=== PATIENT | female | born 1960 | race American Indian/Alaskan Native ===

== ENCOUNTER 2016-07-25 20:38 | Emergency (ER) | payer MEDICARE ==
[2016-07-25] MEDS ORDERED: CATAPRES ONE (20:57)
[2016-07-25] MEDS ORDERED: CATAPRES PO ONE (21:03)
[2016-07-25 21:37] VITALS: BP 149/86
[2016-07-25] MEDS ORDERED: FLEXERIL PO ONE (22:38)
[2016-07-25] MEDS ORDERED: TORADOL IM ONE (22:38)
--- NOTE | 2016-07-25 22:38 | Emergency Department Report ---
HPI - General Chief Complaint: Extremity Injury, Lower Time Seen by Provider: 07/25/16 22:11 - HPI HPI: Is a 55-year-old female presents complaining of left lower but pain radiating down her upper thigh intermittently for about a month. Patient states she has an orthopedic appointment with Dr. Agustin on August 06 as read out of her pain medication and can see her primary care physician on 2 out to the orthopedic appointment. She denies any other problems. She denies any recent falls or trauma. She denies fevers/chills/nausea/vomiting/abdominal pain/chest pains or shortness of breath/dizziness or any other problems. ED Past Medical Hx - Past Medical History Previous Medical History?: Yes Hx Hypertension: Yes Hx Diabetes: Yes - Surgical History Past Surgical History?: Yes Additional Surgical History: C-Sec x 2,. Laser - Eye bilateral - Social History Smoking Status: Never Smoker Substance Use Type: None - Medications Home Medications: Home Medications Medication Instructions Recorded Confirmed Last Taken Type Cyclobenzaprine [Flexeril 10 MG 10 mg PO QHS #24 tablet 07/25/16 Unknown Rx TAB] Diclofenac Potassium 50 mg PO BID #40 tablet 07/25/16 Unknown Rx ED Review of Systems ROS: Stated complaint: LF LEG PAIN Other details as noted in HPI Constitutional: denies: chills, fever Eyes: denies: eye pain, eye discharge, vision change ENT: denies: ear pain, throat pain Respiratory: denies: cough, shortness of breath, wheezing Cardiovascular: denies: chest pain, palpitations Endocrine: no symptoms reported Gastrointestinal: denies: abdominal pain, nausea, diarrhea Genitourinary: denies: urgency, dysuria, discharge Musculoskeletal: denies: back pain, joint swelling, arthralgia Skin: denies: rash, lesions Neurological: denies: headache, weakness, paresthesias Psychiatric: denies: anxiety, depression Hematological/Lymphatic: denies: easy bleeding, easy bruising Physical Exam - Physical Exam Vital Signs: Vital Signs 07/25/16 07/25/16 07/25/16 20:40 21:00 21:36 Temperature 98.0 F 98.1 F Pulse Rate 83 83 81 Respiratory 20 18 Rate Blood Pressure 192/110 Blood Pressure 192/110 149/86 [Right] O2 Sat by Pulse 100 100 Oximetry Physical Exam: GENERAL: Alert and oriented x3, no apparent distress, Normal Gait, atraumatic. HEAD: Head is normocephalic and a-traumatic. NECK: Supple. Non edematous, No carotid bruits. No lymphadenopathy or thyromegaly. No C-spine tenderness LUNGS: Symetrical with respiration, No wheezing, no rales or crackles, CTAB. HEART: S1, S2 present, regular rate and rhythm without murmur, no rubs, no gallops. EXTREMITIES/MUSCULOSKELETAL: No cyanosis, clubbing, rash, lesions or edema. Full ROM bilaterally. UE/LE Pulses 2+ bilaterally. LE and UE 5+ strength bilaterally, straight leg raise positive left side NEUROLOGIC: The patient is cooperative with no focal neurologic deficits. Cranial nerves II through XII are grossly intact. Normal speech. Normal sensation in bilateral lower extremities, No loss of sensation, SKIN: Warm and dry, No lesions, No ulceration or induration present. ED Course Vital Signs 07/25/16 07/25/16 07/25/16 20:40 21:00 21:36 Temperature 98.0 F 98.1 F Pulse Rate 83 83 81 Respiratory 20 18 Rate Blood Pressure 192/110 Blood Pressure 192/110 149/86 [Right] O2 Sat by Pulse 100 100 Oximetry ED Medical Decision Making - Medical Decision Making 55-year-old female presents with lumbar radiculopathy ED course: Patient received Flexeril and Toradol in ED Discussed the patient to keep appointment with her ortho doctor. Patient is alert and oriented 3 she is in no acute distress is better after administration of medication Vital signs are normal. Critical care attestation.: If time is entered above; I have spent that time in minutes in the direct care of this critically ill patient, excluding procedure time. ED Disposition Clinical Impression: Lumbar radiculopathy Disposition: DISCHARGED TO HOME OR SELFCARE Is pt being admited?: No Does the pt Need Aspirin: No Condition: Stable Instructions: Lumbar Radiculopathy (ED), Heat Pack Application (ED), Arthralgia (ED) Additional Instructions: Keep your appointment with the orthopedic. Tick medication as prescribed. Prescriptions: Cyclobenzaprine [Flexeril 10 MG TAB] 10 mg PO QHS #24 tablet Diclofenac Potassium 50 mg PO BID #40 tablet Referrals: JANN BALES MD [Primary Care Provider] - 3-5 Days Forms: Work/School Release Form Time of Disposition: :41
== END 2016-07-25 23:02 | disposition home or self-care (01) ==
LOC: ED 20:38
DX: M54.16 Radiculopathy, lumbar region (principal); I10 Essential (primary) hypertension; E11.9 Type 2 diabetes mellitus without complications
CPT/HCPCS: 96372; 99282; J1885

== ENCOUNTER 2018-07-23 13:38 | Emergency (ER) | payer MEDICARE ==
--- NOTE | 2018-07-23 13:58 | Emergency Department Report ---
Blank Doc - Documentation Documentation: This is a 57-year-old female that presents with left foot sore/ulcer and URI s ymptoms. HX of diabetes. This initial assessment/diagnostic orders/clinical plan/treatment(s) is/are subject to change based on patient's health status, clinical progression and re- assessment by fellow clinical providers in the ED. Further treatment and workup at subsequent clinical providers discretion. Patient/guardians urged not to elope from the ED as their condition may be serious if not clinically assessed and managed. Initial orders include: 1- Patient sent to MAIN ED for further evaluation and treatment 2- CXR 3- Finger stick 4- labs
[2018-07-23 13:59] VITALS: BP 171/78
[2018-07-23 14:35] LABS: Basophils # (Auto) 0.1 K/mm3 (0.0-0.1); Basophils % (Auto) 1.1 % (0.0-1.8); Eosinophils # (Auto) 0.1 K/mm3 (0.0-0.4); Hemoglobin 12.6 gm/dl (10.1-14.3); Lymphocytes # (Auto) 2.2 K/mm3 (1.2-5.4); Lymphocytes % (Auto) 37.6 % (13.4-35.0); Mean Corpuscular HGB Conc 34 % (30-34); Mean Corpuscular Volume 88 fl (79-97); Monocytes # (Auto) 0.6 K/mm3 (0.0-0.8); Monocytes % (Auto) 10.7 % (0.0-7.3); Platelet Count 251 K/mm3 (140-440); Red Blood Count 4.19 M/mm3 (3.65-5.03); Red Cell Distribution Width 12.7 % (13.2-15.2)
--- NOTE | 2018-07-23 14:39 | Emergency Department Report ---
HPI - General Chief Complaint: Extremity Injury, Lower Time Seen by Provider: 07/23/18 13:56 - HPI HPI: 57-year-old -[place] female presents to the emergency department with complaint of concern for an infection of a chronic left foot diabetic ulcer. The patient says that she has had this ulceration to the outside of her left foot for the past 3-4 months. She is followed at multiple times with her primary care physician, Dr. Bales, but she says that she has been consistently told to place topical antibiotic on it and has never had any oral antibiotics. However more recently it has started to ooze and appears to have developed some purulent discharge. She denies any swelling of the foot, erythema, development of fever. She is a insulin-dependent diabetic and says that she is compliant with her medications and that her blood sugar has been recently controlled. She also has a past medical history of hypertension. Secondarily, the patient complains of a chest cold. She denies any chest pain or shortness of breath but does have some chest congestion and a cough. ED Past Medical Hx - Past Medical History Hx Hypertension: Yes Hx Diabetes: Yes - Surgical History Additional Surgical History: C-Sec x 2,. Laser - Eye bilateral - Social History Smoking Status: Never Smoker Substance Use Type: None - Medications Home Medications: Home Medications Medication Instructions Recorded Confirmed Last Taken Type Cyclobenzaprine [Flexeril 10 MG 10 mg PO QHS #24 tablet 07/25/16 Unknown Rx TAB] Diclofenac Potassium 50 mg PO BID #40 tablet 07/25/16 Unknown Rx Sulfamethoxazole/Trimethoprim 1 each PO BID #14 tablet 07/23/18 Unknown Rx [Bactrim DS TAB] ED Review of Systems ROS: Stated complaint: BLISTER LT FOOT Other details as noted in HPI Constitutional: denies: chills, fever Eyes: denies: eye pain ENT: denies: ear pain, throat pain Respiratory: cough. denies: shortness of breath Cardiovascular: denies: chest pain, palpitations Gastrointestinal: denies: abdominal pain, vomiting Genitourinary: denies: dysuria, discharge Musculoskeletal: arthralgia. denies: joint swelling Skin: lesions. denies: pruritus Neurological: denies: headache, weakness Physical Exam - Physical Exam Vital Signs: Vital Signs 07/23/18 13:56 Temperature 97.8 F Pulse Rate 83 Respiratory 16 Rate Blood Pressure 171/78 O2 Sat by Pulse 98 Oximetry Physical Exam: GENERAL: The patient is well-developed well-nourished. HENT: Normocephalic. Atraumatic. Patient has moist mucous membranes. EYES: Extraocular motions are intact. NECK: Supple. Trachea is midline. CHEST/LUNGS: Clear to auscultation. A mild productive cough heard during examination. No tachypnea or accessory muscle use. There is no respiratory distress noted. HEART/CARDIOVASCULAR: Regular. There is no tachycardia. There is no murmur. ABDOMEN: There is no abdominal distention. SKIN: There is a circular left lateral mid foot ulceration seen that is about 1.5 inches in diameter. No surrounding erythema. There is some purulent looking drainage seen. NEURO: The patient is awake, alert, and oriented. The patient is cooperative. The patient has normal speech. MUSCULOSKELETAL: There is no tenderness or deformity. There is no evidence of acute injury. ED Course Vital Signs 07/23/18 13:56 Temperature 97.8 F Pulse Rate 83 Respiratory 16 Rate Blood Pressure 171/78 O2 Sat by Pulse 98 Oximetry ED Medical Decision Making - Lab Data Result diagrams: 07/23/18 14:11 07/23/18 14:11 - Radiology Data Radiology results: image reviewed interpreted by me: Chest x-ray does not show any acute process. There are no pleural effusions, obvious pneumonia and there is no pneumothorax. Left foot x-ray does not show any fracture, dislocation or signs of osteomyelitis. - Medical Decision Making Patient presents to the emergency department with a chronic left diabetic foot ulcer that has started to have some drainage that appears slightly purulent. Patient's labs are mostly unremarkable except for some hyperglycemia with a blood sugar of 270. However the patient just ate lunch and she does not appear to be in diabetic ketoacidosis without any venous acidosis or significant elevation in her anion gap. She was done of the left foot that does not show any signs of osteomyelitis. The patient complains of a chest cold so a chest x- ray was also ordered through [facility]/triage but this resulted as no acute process. The patient will be placed on antibiotics, given podiatry referrals and encouraged to follow up with PCP. - Differential Diagnosis diabetic foot ulcer, osteomyelitis, cellulitis Critical Care Time: No Critical care attestation.: If time is entered above; I have spent that time in minutes in the direct care of this critically ill patient, excluding procedure time. ED Disposition Clinical Impression: Hyperglycemia, Hypokalemia Hypertension Qualifiers: Hypertension type: essential hypertension Qualified Code(s): I10 - Essential (primary) hypertension Diabetic foot ulcer Qualifiers: Diabetic foot ulcer location: midfoot Diabetes mellitus type: type 1 Laterality: left Non-pressure ulcer stage: unspecified non-pressure ulcer stage Qualified Code(s): E10.621 - Type 1 diabetes mellitus with foot ulcer Disposition: TO HOME OR SELFCARE Is pt being admited?: No Condition: Stable Instructions: Hypokalemia (ED), Diabetes Mellitus Type 2 in Adults (ED), Hypertension (ED) Additional Instructions: Please follow-up with your primary care physician in the next few days. I have also given you a referral for 2 different podiatrists/foot doctors. Take the antibiotics as prescribed. Return to the emergency Department with any worsening of her symptoms including increased swelling, increased unbearable pain, development of fever, and with any acute distress. Continue taking her diabetes medications. Try staying away from foods that are high in sugar, carbohydrates and starches. Keep a blood sugar log. Try and stay away from foods that are high in salt and caffeinated products. Continue with your BP meds. Keep a blood pressure log. Prescriptions: Sulfamethoxazole/Trimethoprim [Bactrim DS TAB] 1 each PO BID #14 tablet Referrals: JANN ABLES MD [Primary Care Provider] - 2-3 Days HILARY LONG DPM [Staff Physician] - 2-3 Days TAZ HUGGINS MD [Staff Physician] - 2-3 Days Time of Disposition: 15:06
--- NOTE | 2018-07-23 14:47 | XRay Report ---
ROUTINE CHEST, TWO VIEWS: HISTORY: Cough. The trachea, heart, mediastinal contour, lung yarbrough and bony thorax are unremarkable. IMPRESSION: Unremarkable chest x-ray.
[2018-07-23 14:51] LABS: BUN/Creatinine Ratio 16; Blood Urea Nitrogen 11 mg/dL (7-17); Calcium 9.1 mg/dL (8.4-10.2); Hemolysis Index 2
[2018-07-23] MEDS ORDERED: K-DUR PO ONE (14:53)
--- NOTE | 2018-07-23 15:33 | XRay Report ---
Left foot: Pain, ulcers. Routine views demonstrates vascular calcifications dorsally and posteriorly in the ankle and proximal foot. On the oblique view there is an ulcer on the lateral plantar aspect of the foot. There is approximately 8 mm of soft tissue the ulcer from the bone. There is no underlying bone or joint abnormality. The overall bony densities do appear somewhat diminished however no other significant findings are noted. Impressions: Focal ulceration with no evidence of underlying bone or joint involvement. Vascular calcifications suggesting underlying disease such as diabetes.
== END 2018-07-23 15:33 | disposition home or self-care (01) ==
LOC: ED 13:38
DX: E11.65 Type 2 diabetes mellitus with hyperglycemia (principal); E11.621 Type 2 diabetes mellitus with foot ulcer; L97.528 Non-pressure chronic ulcer of other part of left foot with other specified severity; I10 Essential (primary) hypertension; E87.6 Hypokalemia; Z79.4 Long term (current) use of insulin
CPT/HCPCS: 36415; 71046; 80048; 82805; 82962; 85025; 99284

== ENCOUNTER 2019-03-05 05:56 | Day surgery (SDC) | payer MEDICARE ==
[~2019-03-05 05:56] MED LIST: LACTATED RINGERS 1,000 ML IV SCH; ceFAZolin/Water 2 GM/20 ML 2 GM/20 ML SYRINGE IV NR
[2019-03-05] MEDS ORDERED: MIDAZOLAM 2 MG/2 ML INJ IV NR (06:00)
[2019-03-05] MEDS ORDERED: LIDOCAINE (1%) 10 MG/1 ML VIAL 20 ML MDV ONE (07:19)
[2019-03-05] MEDS ORDERED: BUPIVACAINE-EPINEPHRINE/PF 0.25%-1:200,000 (30 ML) VIAL INFILTRATI ONE (07:19)
[2019-03-05] MEDS ORDERED: BACITRACIN ZINC OINT 28.4 GM TP ONE ×2 (07:19→09:01)
--- NOTE | 2019-03-05 07:21 | Anesthesia Consultation ---
Anesthesia Consult and Med Hx Date of service: 03/05/19 - Airway Anesthetic Teeth Evaluation: Edentulous ROM Head & Neck: Adequate Mental/Hyoid Distance: Adequate Mallampati Class: Class III Intubation Access Assessment: Possibly Difficult - Pre-Operative Health Status ASA Pre-Surgery Classification: ASA3 Proposed Anesthetic Plan: MAC - Pulmonary Hx Smoking: Yes (STOPPED SNUFF 1998) Hx Sleep Apnea: No (TIP PRE SCREEN HIGH RISK) - Cardiovascular System Hx Hypertension: Yes (X 20 YRS) Hx Peripheral Vascular Disease: Yes (ANGIOPLASTY LEFT LEG) - Central Nervous System Hx Neuromuscular Disorder: Yes (peripheral neuropathy) Hx Back Pain: Yes - Endocrine Hx Insulin Dependent Diabetes: Yes - Other Systems Hx Cancer: No Hx Obesity: Yes (Morbid obesity BMI 41.3)
--- NOTE | 2019-03-05 07:21 | Anesthesia Day of Surgery ---
Anesthesia Day of Surgery - Day of Surgery Patient Examined: Yes Patient H&P Reviewed: Yes Patient is NPO: Yes
[2019-03-05] MEDS ORDERED: GENTAMICIN 40 MG/ML VIAL 2 ML ONE (07:31)
[2019-03-05] MEDS ORDERED: PROPOFOL 200 MG/20 ML VIAL IV ONE ×2 (07:40→08:11)
[2019-03-05] MEDS ORDERED: LIDOCAINE MPF (2%) 20 MG/1 ML VIAL 5 ML ONE (07:40)
[2019-03-05] MEDS ORDERED: KETAMINE 500 MG/5 ML VIAL MDV ONE (08:00)
[2019-03-05] MEDS ORDERED: fentaNYL 100 MCG/2 ML INJ IV PRN (08:00)
[2019-03-05] MEDS ORDERED: FAMOTIDINE 20 MG/2 ML INJ IV NR (08:00)
[2019-03-05] MEDS ORDERED: LIDOCAINE (1%) 10 MG/1 ML VIAL 20 ML MDV INFILTRATI ONE (08:14)
[2019-03-05] MEDS ORDERED: BUPIVACAINE/PF (0.5%) 5 MG/1 ML 30 ML VIAL INFILTRATI ONE (08:14)
[2019-03-05] MEDS ORDERED: SODIUM CHLORIDE 0.9% IRRIG SOLN 3000 ML IR ONE (08:15)
[2019-03-05] MEDS ORDERED: ONDANSETRON 4 MG/2 ML INJ ONE (08:50)
[2019-03-05] MEDS ORDERED: KETOROLAC 30 MG/1 ML INJ ONE (08:50)
[2019-03-05] MEDS ORDERED: LIDOCAINE 2% UROJECT 10 ML JELLY ONE (08:53)
[2019-03-05] MEDS ORDERED: LIDOCAINE 2% UROJECT 10 ML JELLY UR ONE (09:01)
[2019-03-05 10:51] VITALS: BP 158/75
--- NOTE | 2019-03-05 11:10 | XRay Report ---
SINGLE VIEW LEFT FOOT INDICATION: s/p left 4th toe amputation. COMPARISON: 07/23/2018 FINDINGS: There has been resection of the fourth and fifth toes and the distal half of the fourth and fifth met atarsals. Soft tissue swelling and soft tissue gas in the lateral forefoot at the amputation site is likely related to recent surgery. There are a few scattered ossific/calcific densities at the surgica l site. These could be remained small bony fragments. IMPRESSION: 1. Postsurgical changes as above. Signer Name: Zac Mcdonald MD Signed: 03/05/2019 11:06 AM Workstation Name: [id number]
--- NOTE | 2019-03-05 11:41 | Post Anesthesia Evaluation ---
- Post Anesthesia Evaluation Patient Participated: Yes Airway Patent: Yes Stable Respiratory Function: Yes Nausea/Vomiting: No Temp > 96.8F: Yes Pain Manageable: Yes Adequeate Hydration: Yes Anesthesia Complications: No
--- NOTE | 2019-03-10 07:48 | Operative Report ---
PREOPERATIVE DIAGNOSIS: Osteomyelitis with chronic open wound, left foot with gangrene. POSTOPERATIVE DIAGNOSIS: Osteomyelitis with chronic open wound, left foot with gangrene. SURGICAL PROCEDURE: 1. Digital amputation with partial resection of fourth metatarsal, left foot with primary closure. 2. Aggressive debridement with partial resection of fifth metatarsal and bone of fifth digit, left foot with primary closure. ANESTHESIA: Local with monitored anesthesia care. TOURNIQUET: Yes, ankle. ESTIMATED BLOOD LOSS: Less than 50 mL. PROCEDURE IN DETAIL: The patient was brought into the operating room, placed on the operating table in supine position. Following intravenous sedation, the patient was given 20 mL of a 1:1 mixture of 1% lidocaine plus 0.25% Marcaine plain into the affected left foot. Let it be noted, the injection was given in the infected open wound areas. Area was cleansed with alcohol prior to injection. At this time, a tourniquet was placed above the left ankle that was well-padded in nature 2-3 cm proximal to the affected ankle. Let it be noted, tourniquet was not initially inflated and was only inflated 20-30 minutes into the procedure. At this time, the foot was then scrubbed, prepped and draped in the usual aseptic manner. Let it be noted, the patient was given 2 grams of Ancef prophylactically. At this time, attention was directed to the necrotic fourth digit, which looked partially attached to the base at ____. Let it be noted, there was also a grade 1 ulceration at the lateral aspect of the base of the fifth metatarsal along with necrotic tissue at the fourth interspace. At this time, attention was directed to the fourth digit in which she was disarticulated from the metatarsophalangeal joint that passed from the operative field with care being taken to leave all viable tissue, which was noted at the dorsal flap. At this time, a proximal incision was made that carried proximally 5-6 cm at the affected area. Let it be noted, this incision was deepened down to the fifth metatarsal area and the fourth metatarsal area. Let it be noted that the fifth metatarsal area tissue appeared to be totally ____ wheat and discoloration along with the shaft of the fourth metatarsal. At this time, disarticulation of the fifth metatarsophalangeal joint down to proximal bone at the shaft was thus performed. Tissue was passed from the operative field to be sent to the laboratory for further diagnosis and evaluation along with the fourth digit. Let it be noted, the fifth digit was disarticulated with a distal medial and proximal phalanx along with two-thirds of the shaft of the fifth metatarsal. Let it be noted, the tissue appeared to be nonviable; however, deep cultures were performed, aerobic, anaerobic and fungal, should also be sent to the laboratory for further diagnosis and evaluation. At this time, all necrotic tissue was thus removed to the best of our ability. The area was flushed copiously with normal sterile saline and at this time, a pulse lavage with gentamicin mix was flushed into the area. After debridement of all edges for rotational flap, the fourth digital space was thus reapproximated along with reapproximation of the deep tissues with 3-0 Vicryl and 4-0 Vicryl followed by 3-0 and 4-0 superficial reapproximation. At this time, the area was dressed with lidocaine gel to help promote more vascular flow. Let it be noted, 20 minutes into the procedure, the Esmarch was inflated to help promote visualization of the area secondary to bleeding at the affected site. At this time, after dressing the area with bacitracin ointment and lidocaine gel and Adaptic and 4 x 4s and Kwesi, the pneumatic ankle tourniquet was deflated. Let it be noted that the tourniquet was inflated to 250 mmHg throughout the procedure and an Esmarch was used to inflate. The patient was placed in a postop shoe with intense focus on care of the wound with weightbearing to tolerance. The patient tolerated the procedure and anesthesia well and will be transferred to recovery with vital signs will be monitored and the patient will be discharged home with both written and oral postoperative instructions. JOB# [id number] MICHEL/PHILIP
== END 2019-03-05 10:35 | disposition home or self-care (01) ==
LOC: OR 05:56
PROVIDERS: ATTEND Podiatrist Foot & Ankle Surgery
DX: E11.621 Type 2 diabetes mellitus with foot ulcer (principal); M86.8X7 Other osteomyelitis, ankle and foot; E11.52 Type 2 diabetes mellitus with diabetic peripheral angiopathy with gangrene; E78.00 Pure hypercholesterolemia, unspecified; I96 Gangrene, not elsewhere classified; L97.529 Non-pressure chronic ulcer of other part of left foot with unspecified severity; I10 Essential (primary) hypertension; E66.01 Morbid (severe) obesity due to excess calories; Z79.899 Other long term (current) drug therapy; Z79.4 Long term (current) use of insulin; Z79.82 Long term (current) use of aspirin; Z87.891 Personal history of nicotine dependence; Z68.41 Body mass index [BMI] 40.0-44.9, adult; Z98.890 Other specified postprocedural states
CPT/HCPCS: 28820; 73620; 82962; 87075; 87116; 88305; 88311; A4217; J0690; J1580; J1885; J2250; J2405; J2704; J3010; J7120

== ENCOUNTER → 2020-08-05 | Emergency (ER) | payer MEDICARE ==
[~2020-08-05] MED LIST changes: +AZITHROMYCIN/NS 500 MG/250 ML 500 MG/250 ML BAG IV ONE; +D5W/0.45% NACL/KCL 20 MEQ 20 MEQ/1,000 ML BAG IV SCH; +DEXTROSE 50% IN WATER (25GM) 50 ML SYRINGE IV PRN; +DOPamine/D5W 800 MG/250 ML DRIP IV ONE; +INSULIN REGULAR, HUMAN 100 UNITS in SODIUM CHLORIDE 0.9% 99 ML IV SCH; -LACTATED RINGERS 1,000 ML IV SCH; +SODIUM CHLORIDE 0.9% 1000 ML 0 ML ONE; +SODIUM CHLORIDE 0.9% 500 ML 500 ML IV ONE; -ceFAZolin/Water 2 GM/20 ML 2 GM/20 ML SYRINGE IV NR; +cefTRIAXone/NS 1 GM/50 ML 1 GM/50 ML BAG IV ONE; +dexAMETHasone 4 MG/ML VIAL IV ONE
--- NOTE | 2020-08-05 06:09 | Emergency Department Report ---
ED General Adult HPI - General Chief complaint: Dyspnea/Respdistress Stated complaint: im weak PUI?: Yes Time Seen by Provider: 08/05/20 06:07 Source: patient, EMS ( EMS documentation not available at time of chart dictat ion ), RN notes reviewed Mode of arrival: Stretcher Limitations: Other (Patient is a poor historian. The patient is hard of hearing.) - History of Present Illness Initial comments: The patient was evaluated in the emergency department for symptoms described in the history of present illness. He/she was evaluated in the context of the global COVID-19 pandemic, which necessitated consideration that the patient might be at risk for infection with the virus that causes COVID-19. Institutional protocols and algorithms that pertain to the evaluation of patients at risk for COVID-19 are in a state of rapid change based on information released by regulatory bodies including the CDC and federal and state organizations. These policies and algorithms were followed during the patient's care in the emergency department. Please note that these policies, procedures and recommendations changed on a rapid basis. During the entire history and physical examination, I had on complete personal protective equipment. The patient is a 59-year-old female. She is not known to myself previously. She reportedly was recently diagnosed with COVID-19 last week, and also has a history of diabetes. She is brought to the hospital today by emergency medical services. Prior to my personal evaluation, she was found to have hyperglycemia, and hypoxia on a nonrebreather. She was placed on BiPAP prior to my personal evaluation, and she endorses improvement. The patient complains of painless weakness and shortness of breath. The patient also indicates that she feels like she is having high blood sugar. The patient is currently on a BiPAP, and states she is having difficulty hearing. However, she currently denies headache, neck pain, chest pain, abdominal pain, focal extremity weakness and/or numbness. She indicates her symptoms have been constant for the past few hours/days. Her symptoms are improved with administration of BiPAP. She indicates her symptoms do not radiate anywhere. Patient not accompanied by friends or family at this time for additional information/collateral information. -: Gradual Quality: other Consistency: other Improves with: other Worsens with: other Associated Symptoms: shortness of breath, weakness - Related Data Home Medications Medication Instructions Recorded Confirmed Last Taken Atenolol/Chlorthalidone [Tenoretic 1 tab PO QDAY 03/03/19 08/05/20 03/05/19 04:00 50-25] AtorvaSTATin [Lipitor] 10 mg PO QHS 03/03/19 08/05/20 03/04/19 21:00 Exenatide Microspheres [Bydureon] 2 mg SQ QWEEK 03/03/19 08/05/20 08/04/20 Furosemide [Lasix TAB] 40 mg PO BID 03/03/19 08/05/20 03/04/19 08:00 amLODIPine [Norvasc] 5 mg PO DAILY 03/03/19 08/05/20 03/05/19 04:00 Dapagliflozin Propanediol (Nf) 1 tab PO DAILY 08/05/20 08/05/20 Unknown [Farxiga (Nf)] Insulin NPH/Regular [Novolin 70/30] 60 unit SUB-Q QDAY 08/05/20 08/05/20 Unknown Insulin NPH/Regular [Novolin 70/30] 60 unit SUB-Q QHS 08/05/20 08/05/20 Unknown Olmesartan Medoxomil [Benicar] 40 mg PO QDAY 08/05/20 08/05/20 Unknown Potassium Chloride 10 meq PO QDAY 08/05/20 08/05/20 Unknown Allergies Allergy/AdvReac Type Severity Reaction Status Date / Time No Known Allergies Allergy Verified 07/23/18 13:39 ED Review of Systems ROS: Stated complaint: DKA Other details as noted in HPI Comment: Unobtainable due to pts medical conditions Constitutional: malaise, weakness Respiratory: shortness of breath Cardiovascular: denies: chest pain Gastrointestinal: denies: abdominal pain Neurological: weakness ED Past Medical Hx - Past Medical History Hx Hypertension: Yes (X 20 YRS) Hx Diabetes: Yes Hx HIV: No - Surgical History Additional Surgical History: C-Sec x 2,. Laser - Eye bilateral - Social History Smoking Status: Former Smoker - Medications Home Medications: Home Medications Medication Instructions Recorded Confirmed Last Taken Type Atenolol/Chlorthalidone [Tenoretic 1 tab PO QDAY 03/03/19 08/05/20 03/05/19 04:00 History 50-25] AtorvaSTATin [Lipitor] 10 mg PO QHS 01/08/20 06/12/21 01/09/20 21:00 History Exenatide Microspheres [Bydureon] 2 mg SQ QWEEK 03/03/19 08/05/20 08/04/20 History Furosemide [Lasix TAB] 40 mg PO BID 03/03/19 08/05/20 03/04/19 08:00 History amLODIPine [Norvasc] 5 mg PO DAILY 03/03/19 08/05/20 03/05/19 04:00 History Dapagliflozin Propanediol (Nf) 1 tab PO DAILY 08/05/20 08/05/20 Unknown History [Farxiga (Nf)] Insulin NPH/Regular [Novolin 70/30] 60 unit SUB-Q QDAY 08/05/20 08/05/20 Unknown History Insulin NPH/Regular [Novolin 70/30] 60 unit SUB-Q QHS 08/05/20 08/05/20 Unknown History Olmesartan Medoxomil [Benicar] 40 mg PO QDAY 08/05/20 08/05/20 Unknown History Potassium Chloride 10 meq PO QDAY 08/05/20 08/05/20 Unknown History ED Physical Exam - General Limitations: Physical Limitation, Other (Patient hard of hearing.) General appearance: alert, in no apparent distress, anxious, in distress, obese - Head Head exam: Present: atraumatic, normocephalic - Eye Eye exam: Present: normal appearance, EOMI. Absent: nystagmus - ENT ENT exam: Present: normal exam, normal orophraynx, mucous membranes moist, normal external ear exam - Neck Neck exam: Present: normal inspection, full ROM. Absent: tenderness, meningismus - Respiratory Respiratory exam: Present: respiratory distress, accessory muscle use, other (Pulmonary auscultation not performed secondary to lack of disposable stethoscope). Absent: stridor - Cardiovascular Cardiovascular Exam: Present: regular rate (Regular rate noted on color television console monitor.), normal rhythm (Regular rhythm noted on color television console monitor.), other (Auscultation not performed secondary to lack of disposable stethoscope) - GI/Abdominal GI/Abdominal exam: Present: soft. Absent: distended, tenderness, guarding, rebound, rigid, pulsatile mass - Extremities Exam Extremities exam: Present: normal inspection, full ROM, other (2+ pulses noted in the bilateral upper and lower extremities. There is no palpable cord. ne gative Homans sign. Muscular compartments are soft. The pelvis is stable.). Absent: pedal edema, calf tenderness - Back Exam Back exam: Present: normal inspection. Absent: tenderness, CVA tenderness (R), CVA tenderness (L), paraspinal tenderness, vertebral tenderness - Neurological Exam Neurological exam: Present: alert, other (No facial droop. Tongue midline. Extraocular movements intact bilaterally. Facial sensation intact to light touch in V1, V2, V3 distribution bilaterally. 5 and a 5 strength in 4 extrem ities. Sensation intact to light touch in 4 extremities.) - Psychiatric Psychiatric exam: Present: anxious - Skin Skin exam: Present: warm, dry, intact, normal color. Absent: rash ED Course Vital Signs 08/05/20 08/05/20 08/05/20 05:25 06:09 08:20 Temperature 98.1 F Pulse Rate 73 90 Respiratory 29 H 39 H Rate Blood Pressure 163/82 Blood Pressure 144/59 [Left] O2 Sat by Pulse 59 L 93 Oximetry - Reevaluation(s) Reevaluation #1: 08/05/20 10:52 The patient was found unresponsive, and pulseless, by her nurse, a CODE BLUE was called, and aggressive CPR was initiated right away. Patient was immediately intubated by myself. Standard ACLS interventions were initiated, and patient received aggressive CPR. Both myself and the hospitalist physician read this patient's resuscitation. After a prolonged resuscitation, pulses could not be obtained, and resuscitative efforts were thus terminated. Hospitalist team is updated. Critical care physician is updated. No family at this time for additional information or collateral information. - Consultations Consultation #1: 08/05/20 08:20 Discussed history, physical, pertinent laboratory studies and imaging studies with critical care physician on-call, Dr. Sandra De La Vega He is in agreement with the plan of care, will follow in consultation, and agrees with placement into the intensive care unit. - Intubation Time Out Performed: No Sedative: none Laryngoscope: fiberoptic video scope Size: 4 Assist Device Used: fiberoptic device ET Tube Size: 7.5 Tube Secured Depth (cm): 23 Tube Secured Location: teeth Tube Placement Confirmation: visualized tube passing t, equal breath sounds bilat, confirmation by capnometr Patient Tolerated Procedure: well Intubation Complications: none ED Medical Decision Making - Lab Data Result diagrams: 08/05/20 06:51 08/05/20 06:51 Vital Signs 08/05/20 08/05/20 05:25 06:09 Pulse Rate 73 90 Respiratory 29 H 39 H Rate Blood Pressure 163/82 Blood Pressure 144/59 [Left] O2 Sat by Pulse 59 L 93 Oximetry Lab Results 08/05/20 08/05/20 08/05/20 Range/Units 06:51 06:51 06:51 WBC 17.1 H (4.5-11.0) K/mm3 RBC 4.13 (3.65-5.03) M/mm3 Hgb 12.3 (10.1-14.3) gm/dl Hct 38.1 (30.3-42.9) % MCV 92 (79-97) fl MCH 30 (28-32) pg MCHC 32 (30-34) % RDW 13.6 (13.2-15.2) % VBG pH (7.320-7.420) Sodium 137 (137-145) mmol/L Potassium 4.5 (3.6-5.0) mmol/L Chloride 91.0 L (98-107) mmol/L Carbon Dioxide 22 (22-30) mmol/L Anion Gap 29 mmol/L BUN 55 H (7-17) mg/dL Creatinine 2.3 H (0.6-1.2) mg/dL Estimated GFR 26 ml/min BUN/Creatinine Ratio 24 % Lactic Acid 9.40 H* (0.7-2.0) mmol/L Calcium 9.0 (8.4-10.2) mg/dL Magnesium 2.70 H (1.7-2.3) mg/dL Total Bilirubin 0.90 (0.1-1.2) mg/dL AST 56 H (5-40) units/L ALT 17 (7-56) units/L Alkaline Phosphatase 104 (35-129) units/L Total Creatine Kinase 200 H (30-135) units/L Troponin T 0.023 (0.00-0.029) ng/mL C-Reactive Protein (0.00-1.30) mg/dL NT-Pro-B Natriuret Pep 5959 H (0-900) pg/mL Total Protein 7.6 (6.3-8.2) g/dL Albumin 3.4 L (3.9-5) g/dL Albumin/Globulin Ratio 0.8 % 08/05/20 08/05/20 Range/Units 06:51 06:51 WBC (4.5-11.0) K/mm3 RBC (3.65-5.03) M/mm3 Hgb (10.1-14.3) gm/dl Hct (30.3-42.9) % MCV (79-97) fl MCH (28-32) pg MCHC (30-34) % RDW (13.2-15.2) % VBG pH 7.282 L (7.320-7.420) Sodium (137-145) mmol/L Potassium (3.6-5.0) mmol/L Chloride (98-107) mmol/L Carbon Dioxide (22-30) mmol/L Anion Gap mmol/L BUN (7-17) mg/dL Creatinine (0.6-1.2) mg/dL Estimated GFR ml/min BUN/Creatinine Ratio % Lactic Acid (0.7-2.0) mmol/L Calcium (8.4-10.2) mg/dL Magnesium (1.7-2.3) mg/dL Total Bilirubin (0.1-1.2) mg/dL AST (5-40) units/L ALT (7-56) units/L Alkaline Phosphatase (35-129) units/L Total Creatine Kinase (30-135) units/L Troponin T (0.00-0.029) ng/mL C-Reactive Protein 31.10 H (0.00-1.30) mg/dL NT-Pro-B Natriuret Pep (0-900) pg/mL Total Protein (6.3-8.2) g/dL Albumin (3.9-5) g/dL Albumin/Globulin Ratio % - EKG Data 08/05/20 08:07 EKG interpreted at 06: 10 Sinus rhythm, 88 bpm. Normal axis, QTC 502 ms. Left ventricular hypertrophy. Minimal motion artifact. This is an abnormal EKG. This is not a STEMI. - Radiology Data Radiology results: pending, report reviewed, image reviewed [facility] [address] [place] [address] XRay Report Signed Patient: ENA UMAÑA MR#: [id number] : 1960 Acct:[id number] Age/Sex: 59 / F ADM Date: 08/05/20 Loc: ED Attending Dr: Ordering Physician: GERRI WAYNE MD Date of Service: 08/05/20 Procedure(s): XR chest 1V ap Accession Number(s): [id number] cc: GERRI WAYNE MD Fluoro Time In Minutes: CHEST 1 VIEW, 08/05/2020 5:39 AM CLINICAL INFORMATION/INDICATION: Shortness of breath. Hypoxia. COMPARISON: Chest radiograph, 07/23/2018 FINDINGS: SUPPORT DEVICES: None. HEART: The cardiac silhouette is normal in size. LUNGS/PLEURA: Faint bilateral predominantly interstitial opacities are noted bilaterally. ADDITIONAL FINDINGS: No additional acute findings. IMPRESSION: 1. Faint bilateral interstitial opacities. This may suggest pulmonary vascular congestion. Signer Name: Cheryl Shields MD Signed: 08/05/2020 6:03 AM Workstation Name: [id number] Transcribed By: EB Dictated By: Cheryl Shields MD Electronically Authenticated By: Cheryl Shields MD Signed Date/Time: 08/05/20602 DD/ 1 - Medical Decision Making Differential diagnosis, including but not limited to: Acute CHF, acute pneumonia, acute COVID-19, acute diabetic ketoacidosis Assessment and plan: 59-year-old female, with a complaint of hyperglycemia, and shortness of breath, diagnosed with COVID-19 last week. She presented with acute hypoxic respiratory failure, and required initiation of BiPAP. She feels much improved on BiPAP, is protecting her airway, not stridulous or encephalopathic. Laboratory studies demonstrate leukocytosis, metabolic acidosis, renal insufficiency, hyperglycemia, acidotic pH, suggestive of diabetic ketoacidosis, renal insufficiency, metabolic acidosis and lactic acidosis. Patient meets criteria for admission and hospitalization secondary to the aforementioned. Patient is amenable to admission and hospitalization at this time. We appreciate that the patient is meeting SIRS/systemic inflammatory response syndrome criteria. This is likely secondary to the all the aforementioned. Given evidence of possible fluid overload, in addition to propensity for COVID- 19 to develop acute respiratory distress syndrome, it is my opinion that patient will not benefit from 30 cc/kg bolus of IV fluids. Gentle fluids, insulin drip, antibiotics, steroids, and admit to the critical care unit. Hospital physician, Dr. Chapa, to admit patient to the critical care unit. Courtesy consultation placed to infectious disease, we will defer to the inpatient team to follow this up. Have placed a page to critical care occupational analyst, awaiting callback. Rectal temperature pending at this time. Hemodynamically stable at this time, patient protecting airway. Critical Care Time: Yes Critical care time in (mins) excluding proc time.: 45 Critical care attestation.: If time is entered above; I have spent that time in minutes in the direct care of this critically ill patient, excluding procedure time. ED Disposition Clinical Impression: Acute respiratory failure with hypoxia, COVID-19, Acute renal failure, [place] bolic acidosis, DKA (diabetic ketoacidoses), Lactic acid acidosis, SIRS (systemic inflammatory response syndrome) Disposition: DC-20 Is pt being admited?: No Does the pt Need Aspirin: No Condition: Undetermined Instructions: Diabetic Ketoacidosis (ED) Referrals: MCKENNA ARELLANO MD [Primary Care Provider] - 3-5 Days
[2020-08-05 06:11] VITALS: BP 163/82
[2020-08-05 07:31] LABS: Hematocrit 38.1 % (30.3-42.9); Hemoglobin 12.3 gm/dl (10.1-14.3); Mean Corpuscular HGB Conc 32 % (30-34); Mean Corpuscular Volume 92 fl (79-97); Red Blood Count 4.13 M/mm3 (3.65-5.03); Red Cell Distribution Width 13.6 % (13.2-15.2)
[2020-08-05 07:59] LABS: C-Reactive Protein 31.1 mg/dL (0.00-1.30)
[2020-08-05 08:00] LABS: Albumin 3.4 g/dL (3.9-5)
[2020-08-05 08:05] LABS: Platelet Count 264 K/mm3 (140-440)
[2020-08-05 09:52] LABS: Band Neutrophils # (Manual) 0.2 K/mm3; Platelet Estimate Consistent w Auto; RBC Morphology Normal; Total Cells Counted 100
--- NOTE | 2020-08-10 12:44 | Electrocardiograph Report ---
[facility] Test Date: 2020-08-05 Test Time: 06:10:30 Pat Name: ENA PARIS Department: Room: Gender: F Respiratory Care Faculty: JESSICA : 1960 Requested By: GERRI WAYNE Order Number: [id number] Reading MD: Louann Bennett Measurements Intervals [place] Rate: 88 P: 56 MD: 117 QRS: 18 QRSD: 94 T: QT: 415 QTc: 502 Interpretive Statements Sinus rhythm No previous ECG available for comparison Electronically Signed On 08-10-2020 12:44:07 EDT by Louann Bennett
== END ==
LOC: ED 05:25
DX: U07.1 COVID-19 (principal); J96.01 Acute respiratory failure with hypoxia; N17.9 Acute kidney failure, unspecified; E87.2 Acidosis; E11.10 Type 2 diabetes mellitus with ketoacidosis without coma; R65.10 Systemic inflammatory response syndrome (SIRS) of non-infectious origin without acute organ dysfunction; I10 Essential (primary) hypertension; Z87.891 Personal history of nicotine dependence; Z98.890 Other specified postprocedural states; Z79.899 Other long term (current) drug therapy
CPT/HCPCS: 31500; 36415; 71045; 80053; 82140; 82550; 82728; 82805; 82962; 83615; 83735; 83880; 84145; 84484; 85007; 85025; 85379; 86140; 87040; 92950; 93005; 99291; J1265; J0456; J0696; J1815; J7030